=== PATIENT | male | born 2000 | race Caucasian/White ===

== ENCOUNTER 2020-05-12 06:46 | Emergency (ER) | payer MEDICAID, OTHER ==
[2020-05-12 07:26] VITALS: BP 141/89
[2020-05-12] MEDS ORDERED: IBUPROFEN 800 MG TAB PO ONE (08:00)
[2020-05-12] MEDS ORDERED: TETANUS-DIPTH-ACEL PERTUSSIS 0.5ML SYR Tdap IM ONE (08:00)
== END 2020-05-12 08:37 | disposition home or self-care (01) ==
LOC: ER 06:46
DX: S62.660A Nondisplaced fracture of distal phalanx of right index finger, initial encounter for closed fracture (principal); S61.208A Unspecified open wound of other finger without damage to nail, initial encounter; X50.9XXA Other and unspecified overexertion or strenuous movements or postures, initial encounter; Y93.89 Activity, other specified; Y92.89 Other specified places as the place of occurrence of the external cause; Y99.8 Other external cause status
CPT/HCPCS: 29130; 73140; 90471; 90715